=== PATIENT | male | born 1945 | race Caucasian/White ===

== ENCOUNTER 2016-10-27 07:49 | Outpatient (RCR) | payer OTHER | END 2016-11-02 11:12 | disposition home or self-care (01) | LOC: WSPT 07:49 | DX: M54.5 Low back pain (principal) | CPT/HCPCS: G8978-GP; G8979-GP ==

== ENCOUNTER → 2018-03-29 | Outpatient (REF) | LOC: ZLAB.WCH 09:01 | DX: Z01.89 Encounter for other specified special examinations (principal) ==

== ENCOUNTER → 2018-03-29 | Outpatient (REF) | LOC: ZLAB.WCH 08:41 | DX: Z01.89 Encounter for other specified special examinations (principal) ==